=== PATIENT | female | born 1965 | race Caucasian/White ===

== ENCOUNTER → 2021-05-04 15:30 | Outpatient (CLI) | payer MEDICAID, SELFPAY ==
[2021-05-04 16:55] LABS: Intact Parathyroid Hormone 184.8 pg/mL (7.5-53.5)
[2021-05-05 15:47] LABS: Free T4 (Free Thyroxine) 0.79 ng/dl (0.78-2.19)
[2021-05-06 09:48] LABS: Thyroid Peroxidase Antibodies <9 IU/mL (0-34); Triiodothyronine (T3) Free 2.7 pg/mL (2.0-4.4)
[2021-05-06 14:24] LABS: Calcium, Ionized 5.3 mg/dL (4.5-5.6)
[2021-05-07 13:16] LABS: Thyroid Stimulating Immunoglob <0.10 IU/L (0.00-0.55)
== END ==
PROVIDERS: Visit Provider Otolaryngology
DX: E34.9 Endocrine disorder, unspecified (principal)
CPT/HCPCS: 36415; 82330; 83970; 84439; 84443; 84445; 84481; 86376

== ENCOUNTER → 2021-05-16 14:26 | Outpatient (CLI) | payer MEDICAID, SELFPAY ==
--- NOTE | 2021-05-16 14:27 | US_ITS ---
PROCEDURE: US THYROID CLINICAL INDICATION: hx abn thyroid labs Abnormal thyroid function test COMPARISON: No exams were available for comparison FINDINGS: Right lobe: Right lobe is 3.7 x 1.2 x 1.3 cm. There are 4 small hypoechoic nodules which are 3 mm or less too small to categorize. In the mid aspect of the right lobe of the thyroid gland there is a area of heterogeneous echogenicity with questionable 8 x 6 mm solid nodule and 2 cystic areas within this region. This may only represent an area of heterogeneous echogenicity with 2 small cysts. Follow-up suggested. Left lobe: 4.2 x 0.8 x 1.5 cm. 3 mm hypoechoic nodule upper pole. 4 mm solid-appearing well-circumscribed nodule mid polar region hypoechoic slightly spongiform. Ill-defined 4 mm hypoechoic area mid polar region. 2 mm cystic nodule lower pole Isthmus: Unremarkable Additional findings: IMPRESSION: Small bilateral thyroid nodules as described above probably benign. Consider 6-12 month follow-up to confirm stability Dictated by: Viet Argueta MD 05/16/2021 16:25 Viet Argueta MD in [place] 05/16/2021 16:25
== END ==
PROVIDERS: PCP Internal Medicine; Visit Provider Otolaryngology
DX: E34.9 Endocrine disorder, unspecified (principal)
CPT/HCPCS: 76536

== ENCOUNTER → 2021-12-20 13:07 | Outpatient (CLI) | payer MEDICAID, SELFPAY ==
--- NOTE | 2021-12-20 13:21 | US_ITS ---
FINAL REPORT CLINICAL HISTORY: hypothyroidism FINDINGS: THYROID ULTRASOUND The right lobe of the thyroid measures 3.9 x 1.6 x 1.0 cm. The left lobe of the thyroid measures 4.0 x 1.6 x 1.1 cm. The parenchyma shows normal echogenicity. There is a 1.1 x 0.8 x 0.5 cm solid hyperechoic TI-RADS 3 nodule in the right lobe of the thyroid. Anteromedially there is a 4 x 3 x 2 mm solid hypoechoic TI-RADS 4 nodule. In the left lobe of the thyroid is a 4 x 4 x 3 mm solid hypoechoic TI-RADS 4 nodule. Also in the left lobe of the thyroid is a 6 x 5 x 3 mm cystic and solid TI-RADS 1 nodule. IMPRESSION: Small bilateral nodules. No follow-up recommended per ACR guidelines. Reviewed, Interpreted and Dictated by Israel Lee III, MD Transcribed by Drew Jimenez Authenticated by Israel Lee III, MD on 12/20/2021 02:34:48 PM [facility]
[2021-12-20 14:08] LABS: Thyroid Stimulating Hormone 2.55 uIU/mL (0.465-4.68)
[2021-12-20 14:34] LABS: Free T4 (Free Thyroxine) 0.99 ng/dl (0.78-2.19)
== END ==
PROVIDERS: PCP Internal Medicine; Visit Provider Otolaryngology
DX: E03.9 Hypothyroidism, unspecified (principal)
CPT/HCPCS: 36415; 76536; 84439; 84443

== ENCOUNTER → 2021-12-20 16:18 | Outpatient (CLI) | payer MEDICAID, SELFPAY ==
[2021-12-20 16:54] LABS: Chloride 103 mmol/L (98-107); Sodium 136 mmol/L (136-145)
[2021-12-20 16:55] LABS: Potassium 3.2 mmoL/L (3.5-5.1)
[2021-12-20 16:56] LABS: Blood Urea Nitrogen 11 mg/dl (7-17); Estimated Glomerular Filt Rate 74 ml/min (>60); GFR (African American) 89 ML/MIN (>60)
[2021-12-20 16:57] LABS: Alanine Aminotransferase 16 U/L (12-78); Albumin Level 4.4 g/dl (3.5-5.0); Albumin/Globulin Ratio 1.6 (1.1-1.8); Alkaline Phosphatase 91 U/L (38-126); Anion Gap 6.2 mEq/L (5-15); Aspartate Amino Transferase 33 U/L (14-36); Bilirubin,Total 0.5 mg/dl (0.2-1.3); Calcium 8.8 mg/dl (8.4-10.2); Carbon Dioxide 30 mmol/L (22.0-30.0); Globulin 2.8 g/dL (1.3-3.2); Glucose 73 mg/dl (74-100); Total Protein,Serum 7.2 g/dl (6.3-8.2)
[2021-12-20 17:25] LABS: Intact Parathyroid Hormone 115.7 pg/mL (7.5-53.5)
[2021-12-22 17:10] LABS: Calcium, Ionized 5.4 mg/dL (4.5-5.6)
== END ==
PROVIDERS: PCP Internal Medicine; Visit Provider Otolaryngology
DX: E03.9 Hypothyroidism, unspecified (principal); E34.9 Endocrine disorder, unspecified
CPT/HCPCS: 80053; 82330; 83970